=== PATIENT | female | born 1955 | race African-American/Black ===

== ENCOUNTER 2017-07-04 05:42 | Inpatient (IN) ==
[2017-07-04] MEDS ORDERED: CLINDAMYCIN INJ 50 ML IV ONE (05:57)
[2017-07-04] MEDS ORDERED: DIAZEPAM 5 MG TABLET PO ONE (06:00)
[2017-07-04] MEDS ORDERED: FAMOTIDINE 20 MG TABLET PO ONE (06:00)
[2017-07-04] MEDS ORDERED: TRANEXAMIC ACID 1,000 MG/10 ML VIAL ONE (06:27)
[2017-07-04] MEDS ORDERED: CLINDAMYCIN INJ 900 MG in PREMIX 1 EACH IV ONE (06:30)
[2017-07-04] MEDS: LACTATED RINGERS 1,000 ML IV SCH ×2 (06:39→19:36)
[2017-07-04] MEDS ORDERED: DIAZEPAM 5 MG TABLET ONE (06:47)
[2017-07-04] MEDS ORDERED: FAMOTIDINE 20 MG TABLET ONE (06:47)
[2017-07-04] MEDS ORDERED: VANCOMYCIN INJ 1,000 MG in SODIUM CHLORIDE 0.9% 250 ML IV ONE (06:48)
[2017-07-04] MEDS ORDERED: BUPIVACAINE SPINAL 0.75% 2 ML AMP SPINAL ONE (07:03)
[2017-07-04] MEDS ORDERED: MORPHINE 10 MG/10 ML VIAL ONE (07:03)
[2017-07-04] MEDS ORDERED: BISACODYL 10 MG SUPP RECTAL PRN (07:16)
[2017-07-04] MEDS ORDERED: MAGNESIUM HYDROXIDE SUSP 30 ML UDCUP PO PRN (07:16)
[2017-07-04] MEDS ORDERED: MORPHINE 4 MG/1 ML VIAL IV PRN (07:16)
[2017-07-04] MEDS ORDERED: ONDANSETRON 4 MG/2 ML VIAL IV PRN (07:16)
[2017-07-04] MEDS ORDERED: PROMETHAZINE 25 MG/1 ML VIAL IM PRN (07:16)
[2017-07-04] MEDS ORDERED: diphenhydrAMINE CAP 25 MG CAPSULE PO PRN (07:16)
[2017-07-04] MEDS ORDERED: NALOXONE 0.4 MG/ML VIAL IV PRN (07:16)
[2017-07-04] MEDS ORDERED: LACTULOSE 20 GM/30 ML UDCUP PO PRN (07:16)
[2017-07-04] MEDS ORDERED: TEMAZEPAM 7.5 MG CAPSULE PO PRN (07:16)
[2017-07-04] MEDS ORDERED: ROPIVACAINE 0.5% 30 ML VIAL ONE (08:50)
[2017-07-04] MEDS ORDERED: PROMETHAZINE 25 MG/1 ML VIAL ONE (08:53)
[2017-07-04] MEDS ORDERED: PROMETHAZINE 25 MG/1 ML VIAL IM ONE (09:00)
[2017-07-04] MEDS ORDERED: fentaNYL 100 MCG/2 ML VIAL ONE (09:11)
[2017-07-04] MEDS ORDERED: SEVOFLURANE 1 UNIT/15 MINUTE INH ONE (09:11)
[2017-07-04] MEDS ORDERED: PROPOFOL 200 MG/20 ML VIAL IV ONE (09:11)
[2017-07-04] MEDS ORDERED: ROCURONIUM 100 MG/10 ML VIAL IV ONE (09:12)
[2017-07-04] MEDS ORDERED: DEXAMETHASONE 10 MG/1 ML VIAL ONE (09:12)
[2017-07-04] MEDS ORDERED: MIDAZOLAM 2 MG/2 ML VIAL ONE (09:12)
[2017-07-04] MEDS ORDERED: GLYCOPYRROLATE 0.4 MG/2 ML VIAL ONE (09:12)
[2017-07-04] MEDS ORDERED: PHENYLEPHRINE 10 MG/1 ML VIAL IV ONE (09:12)
[2017-07-04] MEDS ORDERED: LACTATED RINGERS 1,000 ML IV ONE (09:12)
[2017-07-04] MEDS ORDERED: NEOSTIGMINE 10 MG/10 ML VIAL ONE (09:12)
[2017-07-04] MEDS ORDERED: KETAMINE 500 MG/10 ML VIAL ONE (09:12)
[2017-07-04] MEDS ORDERED: ACETAMINOPHEN 1,000 MG/100 ML VIAL IV ONE (09:12)
[2017-07-04] MEDS ORDERED: ONDANSETRON 4 MG/2 ML VIAL ONE (09:12)
[2017-07-04] MEDS ORDERED: MORPHINE 10 MG/1 ML VIAL ONE (09:26)
[2017-07-04] MEDS ORDERED: MORPHINE 10 MG/1 ML VIAL IV PRN (09:28)
[2017-07-04] MEDS ORDERED: MORPHINE PCA 30 MG/30 ML SYRINGE IV ONE (09:32)
[2017-07-04] MEDS: MORPHINE PCA 30 MG/30 ML SYRINGE IV SCH (09:36)
[2017-07-04] MEDS ORDERED: tiZANidine 4 MG TABLET PO SCH (10:00)
[2017-07-04] MEDS: VALSARTAN/HCTZ 160-12.5 MG TABLET PO SCH (11:45)
[2017-07-04] MEDS: ESTRADIOL 1 MG TABLET PO SCH (13:45)
[2017-07-04] MEDS: DOCUSATE SODIUM 100 MG CAPSULE PO SCH ×2 (13:45→20:45)
[2017-07-04] MEDS: MULTIVITAMIN (CENTRUM) TABLET PO SCH (13:45)
[2017-07-04] MEDS: ASPIRIN EC 81 MG TABLET PO SCH (13:45)
[2017-07-04] MEDS: OMEGA 3 ACID ETHYL ESTERS 1 GM CAPSULE PO SCH (13:46)
[2017-07-04] MEDS: NAPROXEN 500 MG TABLET PO SCH ×2 (13:46→20:45)
[2017-07-04] MEDS: CLINDAMYCIN INJ 900 MG in PREMIX 1 EACH IV SCH ×2 (15:22→22:07)
[2017-07-04] MEDS: tiZANidine 4 MG TABLET PO SCH (20:45)
[2017-07-05 04:42] LABS: Basophils % 0.3 % (0.0-0.8); Eosinophils % 0.1 % (0.00-10.9); Hematocrit 28.5 VOL% (35.7-47.0); Hemoglobin 9.1 GM/DL (12.0-16.0); Immature Granulocytes % 0.3 %; Immature Granulocytes Absolute 0.02 #; Lymphocytes # 1.1 10*3/uL (1.4-4.0); Lymphocytes % 15.7 % (21.3-54.2); Mean Corpuscular HGB Conc 31.9 GM/DL (32-36); Mean Corpuscular Hemoglobin 31 PG (27-34); Mean Corpuscular Volume 98.3 FL (87-102); Mean Platelet Volume 10.3 FL (9.6-12.0); Monocytes # 0.8 10*3/uL (0.11-0.8); Neutrophils # 4.9 10*3/uL (1.4-7.4); Neutrophils % 72.6 % (38.7-73.9); Platelet Count 201 T/CUMM (130-400); White Blood Count 6.8 T/CUMM (4-12)
[2017-07-05 05:11] LABS: Calcium 8.6 MG/DL (8.5-10.1); Osmolality,Calculated 279.4 MOS/KG (273-304); Potassium 3.6 MMOL/L (3.5-5.1)
[2017-07-05] MEDS: FONDAPARINUX 2.5 MG/0.5 ML SYRINGE SUBCUT SCH (06:12)
[2017-07-05] MEDS: ESTRADIOL 1 MG TABLET PO SCH ×2 (09:00→13:31)
[2017-07-05] MEDS: MULTIVITAMIN (CENTRUM) TABLET PO SCH (09:00)
[2017-07-05] MEDS: ASPIRIN EC 81 MG TABLET PO SCH (09:00)
[2017-07-05] MEDS: DOCUSATE SODIUM 100 MG CAPSULE PO SCH ×2 (09:00→20:48)
[2017-07-05] MEDS: NAPROXEN 500 MG TABLET PO SCH ×2 (09:00→20:48)
[2017-07-05] MEDS: OMEGA 3 ACID ETHYL ESTERS 1 GM CAPSULE PO SCH (09:00)
[2017-07-05] MEDS: VALSARTAN/HCTZ 160-12.5 MG TABLET PO SCH ×2 (09:00→13:31)
[2017-07-05] MEDS: MORPHINE PCA 30 MG/30 ML SYRINGE IV SCH (11:04)
[2017-07-05] MEDS: LACTATED RINGERS 1,000 ML IV SCH (20:48)
[2017-07-05] MEDS: tiZANidine 4 MG TABLET PO SCH (20:48)
[2017-07-06] MEDS: FONDAPARINUX 2.5 MG/0.5 ML SYRINGE SUBCUT SCH (05:10)
[2017-07-06 05:46] LABS: Basophils # 0.1 10*3/uL (0.0-0.2); Basophils % 0.6 % (0.0-0.8); Eosinophils # 0.3 10*3/uL (0.0-0.87); Hematocrit 28.4 VOL% (35.7-47.0); Hemoglobin 9.2 GM/DL (12.0-16.0); Immature Granulocytes % 0.4 %; Immature Granulocytes Absolute 0.03 #; Lymphocytes # 1.6 10*3/uL (1.4-4.0); Lymphocytes % 18.5 % (21.3-54.2); Mean Corpuscular HGB Conc 32.4 GM/DL (32-36); Mean Corpuscular Hemoglobin 32 PG (27-34); Mean Corpuscular Volume 98.3 FL (87-102); Monocytes # 0.7 10*3/uL (0.11-0.8); Monocytes % 8.2 % (1.7-12.7); Neutrophils # 5.9 10*3/uL (1.4-7.4); Neutrophils % 69.3 % (38.7-73.9); Platelet Count 182 T/CUMM (130-400); Red Blood Count 2.89 MC/CUMM (3.8-5.5); Red Cell Distribution Width 12.3 % (9.3-17.3); White Blood Count 8.5 T/CUMM (4-12)
[2017-07-06] MEDS: ASPIRIN EC 81 MG TABLET PO SCH (08:48)
[2017-07-06] MEDS: MULTIVITAMIN (CENTRUM) TABLET PO SCH (08:48)
[2017-07-06] MEDS: ESTRADIOL 1 MG TABLET PO SCH (08:49)
[2017-07-06] MEDS: DOCUSATE SODIUM 100 MG CAPSULE PO SCH ×2 (08:49→20:31)
[2017-07-06] MEDS: OMEGA 3 ACID ETHYL ESTERS 1 GM CAPSULE PO SCH (08:49)
[2017-07-06] MEDS: NAPROXEN 500 MG TABLET PO SCH ×2 (08:49→20:32)
[2017-07-06] MEDS: VALSARTAN/HCTZ 160-12.5 MG TABLET PO SCH (08:49)
[2017-07-06] MEDS: LACTATED RINGERS 1,000 ML IV SCH (08:50)
[2017-07-06] MEDS: tiZANidine 4 MG TABLET PO SCH (20:32)
[2017-07-07] MEDS: FONDAPARINUX 2.5 MG/0.5 ML SYRINGE SUBCUT SCH (06:02)
[2017-07-07 07:45] VITALS: BP 132/75
[2017-07-07] MEDS: ASPIRIN EC 81 MG TABLET PO SCH (08:12)
[2017-07-07] MEDS: DOCUSATE SODIUM 100 MG CAPSULE PO SCH (08:13)
[2017-07-07] MEDS: MULTIVITAMIN (CENTRUM) TABLET PO SCH (08:13)
[2017-07-07] MEDS: VALSARTAN/HCTZ 160-12.5 MG TABLET PO SCH (08:13)
[2017-07-07] MEDS: OMEGA 3 ACID ETHYL ESTERS 1 GM CAPSULE PO SCH (08:13)
[2017-07-07] MEDS: ESTRADIOL 1 MG TABLET PO SCH (08:13)
[2017-07-07] MEDS: NAPROXEN 500 MG TABLET PO SCH (08:14)
== END 2017-07-07 10:00 | disposition home health service (06) | DRG 470 ==
LOC: N.OR 05:42 → N.SDSINP 05:45 → N.3E 07:16
PROVIDERS: ADMIT Orthopaedic Surgery; ATTEND Orthopaedic Surgery

== ENCOUNTER 2020-02-03 06:12 | Inpatient (IN) ==
[2020-01-28 16:11] LABS: Basophils # 0.1 10*3/uL (0.0-0.2); Eosinophils # 0.2 10*3/uL (0.0-0.87); Hematocrit 36.3 VOL% (35.7-47.0); Hemoglobin 12.1 GM/DL (12.0-16.0); Immature Granulocytes % 0.3 %; Immature Granulocytes Absolute 0.01 #; Lymphocytes # 1.6 10*3/uL (1.4-4.0); Lymphocytes % 39.8 % (21.3-54.2); Mean Corpuscular HGB Conc 33.3 GM/DL (32-36); Mean Platelet Volume 10.4 FL (9.6-12.0); Neutrophils % 45.9 % (38.7-73.9); Platelet Count 241 T/CUMM (130-400); Red Blood Count 3.78 MC/CUMM (3.8-5.5); Red Cell Distribution Width 12.4 % (9.3-17.3)
[2020-01-28 16:34] LABS: Calcium 9.7 MG/DL (8.5-10.1); Osmolality,Calculated 278.4 MOS/KG (273-304)
[~2020-02-03 06:12] MED LIST: ALVIMOPAN 12 MG CAPSULE PO STA; CIPROFLOXACIN INJ 400 MG in PREMIX 1 EACH IV ONE; LACTATED RINGERS 1,000 ML IV SCH; metroNIDAZOLE INJ 500 MG in PREMIX 1 EACH IV ONE
[2020-02-03] MEDS ORDERED: LEVOFLOXACIN 500 MG TABLET PO STA (07:20)
[2020-02-03] MEDS ORDERED: GENTAMICIN INJ 160 MG in SODIUM CHLORIDE 0.9% 100 ML IV STA (07:21)
[2020-02-03] MEDS ORDERED: DIAZEPAM 5 MG TABLET PO STA (07:58)
[2020-02-03] MEDS ORDERED: FAMOTIDINE 20 MG TABLET PO STA (07:58)
[2020-02-03] MEDS ORDERED: fentaNYL 100 MCG/2 ML VIAL ONE (09:32)
[2020-02-03] MEDS ORDERED: MIDAZOLAM 2 MG/2 ML VIAL ONE (09:32)
[2020-02-03] MEDS ORDERED: LIDOCAINE 2% 5 ML VIAL ONE (09:35)
[2020-02-03] MEDS ORDERED: ROCURONIUM 50 MG/5 ML VIAL IV ONE ×2 (09:35→12:46)
[2020-02-03] MEDS ORDERED: propofoL 200 MG/20 ML VIAL IV ONE ×2 (09:35→14:33)
[2020-02-03] MEDS ORDERED: SUCCINYLCHOLINE 200 MG/10 ML VIAL ONE (09:35)
[2020-02-03] MEDS ORDERED: TISSUE ADHESIVE 1 EACH APPLICATOR TOP ONE (09:43)
[2020-02-03] MEDS ORDERED: ROPIVACAINE 0.5% 30 ML VIAL ONE (09:44)
[2020-02-03] MEDS ORDERED: LIDOCAINE 1%/EPI INJ 20 ML VIAL ONE (09:46)
[2020-02-03] MEDS ORDERED: BUPIVACAINE MPF 0.25% 30 ML VIAL ONE ×2 (09:46→09:51)
[2020-02-03] MEDS ORDERED: LIDOCAINE 1% 5 ML VIAL ONE (09:47)
[2020-02-03] MEDS ORDERED: DEXAMETHASONE 4 MG/1 ML VIAL ONE (09:48)
[2020-02-03] MEDS ORDERED: INDOCYANINE GREEN 25 MG VIAL IV ONE (10:45)
[2020-02-03] MEDS ORDERED: ePHEDrine 50 MG/ML VIAL ONE (11:05)
[2020-02-03] MEDS ORDERED: SEVOFLURANE 1 UNIT/15 MINUTE INH ONE ×14 (11:05→15:18)
[2020-02-03] MEDS ORDERED: LACTATED RINGERS 1,000 ML IV ONE ×2 (11:57→14:36)
[2020-02-03] MEDS ORDERED: HYDROmorphone 2 MG/1 ML VIAL ONE (12:25)
[2020-02-03] MEDS ORDERED: PHENYLEPHRINE 1 MG/10 ML SYRINGE IV ONE ×2 (12:34→14:15)
[2020-02-03] MEDS ORDERED: PHENYLEPHRINE 10 MG/1 ML VIAL IV ONE (13:13)
[2020-02-03] MEDS ORDERED: METHYLENE BLUE 10 ML VIAL IV ONE (13:31)
[2020-02-03] MEDS ORDERED: NEOSTIGMINE 10 MG/10 ML VIAL ONE ×4 (14:35→15:17)
[2020-02-03] MEDS ORDERED: GLYCOPYRROLATE 0.4 MG/2 ML VIAL ONE (14:35)
[2020-02-03] MEDS ORDERED: ONDANSETRON 4 MG/2 ML VIAL ONE (14:45)
[2020-02-03] MEDS ORDERED: ONDANSETRON 4 MG/2 ML VIAL IV PRN (15:20)
[2020-02-03] MEDS ORDERED: ONDANSETRON 4 MG/2 ML VIAL IV ONE (16:01)
[2020-02-03] MEDS ORDERED: PROMETHAZINE 25 MG/1 ML VIAL ONE (16:24)
[2020-02-03] MEDS ORDERED: PROMETHAZINE INJ 6.25 MG in SODIUM CHLORIDE 0.9% 50 ML IV ONE (16:30)
[2020-02-03] MEDS: DEXTROSE 5% LACTATED RINGERS 1,000 ML IV SCH ×2 (17:17→23:30)
[2020-02-03 18:06] LABS: Hematocrit 39.9 VOL% (35.7-47.0); Hemoglobin 12.7 GM/DL (12.0-16.0)
[2020-02-03] MEDS: HYDROmorphone 2 MG/1 ML VIAL IV PRN (18:34)
[2020-02-03] MEDS: OXYBUTYNIN XL 10 MG TABLET PO SCH (21:19)
[2020-02-03] MEDS: metroNIDAZOLE INJ 500 MG in PREMIX 1 EACH IV SCH (21:19)
[2020-02-04 00:08] LABS: Hematocrit 37.1 VOL% (35.7-47.0); Hemoglobin 11.9 GM/DL (12.0-16.0)
[2020-02-04] MEDS: DEXTROSE 5% LACTATED RINGERS 1,000 ML IV SCH ×3 (03:35→16:12)
[2020-02-04] MEDS: metroNIDAZOLE INJ 500 MG in PREMIX 1 EACH IV SCH (05:22)
[2020-02-04 06:09] LABS: Basophils # 0.1 10*3/uL (0.0-0.2); Basophils % 0.5 % (0.0-0.8); Hematocrit 33.8 VOL% (35.7-47.0); Hemoglobin 11.3 GM/DL (12.0-16.0); Immature Granulocytes % 0.3 %; Immature Granulocytes Absolute 0.03 #; Lymphocytes # 0.6 10*3/uL (1.4-4.0); Lymphocytes % 5.3 % (21.3-54.2); Mean Corpuscular HGB Conc 33.4 GM/DL (32-36); Mean Platelet Volume 11.1 FL (9.6-12.0); Monocytes % 7.5 % (1.7-12.7); Neutrophils % 86.4 % (38.7-73.9); Platelet Count 213 T/CUMM (130-400); Red Blood Count 3.45 MC/CUMM (3.8-5.5); Red Cell Distribution Width 12.6 % (9.3-17.3); White Blood Count 10.9 T/CUMM (4-12)
[2020-02-04 06:44] LABS: Calcium 8.4 MG/DL (8.5-10.1); Osmolality,Calculated 282.4 MOS/KG (273-304)
[2020-02-04] MEDS: HYDROmorphone 2 MG/1 ML VIAL IV PRN (07:23)
[2020-02-04] MEDS: ASPIRIN EC 81 MG TABLET PO SCH (08:59)
[2020-02-04] MEDS: LOSARTAN 50 MG TABLET PO SCH (08:59)
[2020-02-04] MEDS: PANTOPRAZOLE 40 MG TABLET PO SCH (08:59)
[2020-02-04] MEDS: ENOXAPARIN 40 MG/0.4 ML SYRINGE SUBCUT SCH (08:59)
[2020-02-04] MEDS: hydroCHLOROthiazide 12.5 MG CAPSULE PO SCH (08:59)
[2020-02-04] MEDS ORDERED: LEVOFLOXACIN INJ 500 MG in PREMIX 1 EACH IV SCH (09:21)
[2020-02-04] MEDS ORDERED: SIMETHICONE CHEW 80 MG TABLET PO PRN (15:52)
[2020-02-04] MEDS: OXYBUTYNIN XL 10 MG TABLET PO SCH (20:29)
[2020-02-05] MEDS: HYDROmorphone 2 MG/1 ML VIAL IV PRN ×2 (05:11→21:26)
[2020-02-05] MEDS: DEXTROSE 5% LACTATED RINGERS 1,000 ML IV SCH ×2 (06:29→21:30)
[2020-02-05] MEDS: LOSARTAN 50 MG TABLET PO SCH (09:31)
[2020-02-05] MEDS: PANTOPRAZOLE 40 MG TABLET PO SCH (09:31)
[2020-02-05] MEDS: ENOXAPARIN 40 MG/0.4 ML SYRINGE SUBCUT SCH (09:31)
[2020-02-05] MEDS: ASPIRIN EC 81 MG TABLET PO SCH (09:31)
[2020-02-05] MEDS: hydroCHLOROthiazide 12.5 MG CAPSULE PO SCH (09:31)
[2020-02-05] MEDS: SIMETHICONE CHEW 80 MG TABLET PO PRN ×2 (09:37→15:34)
[2020-02-05 11:14] LABS: Basophils % 0.4 % (0.0-0.8); Eosinophils # 0.4 10*3/uL (0.0-0.87); Eosinophils % 3.9 % (0.00-10.9); Hematocrit 30.5 VOL% (35.7-47.0); Hemoglobin 9.8 GM/DL (12.0-16.0); Immature Granulocytes % 0.6 %; Immature Granulocytes Absolute 0.05 #; Lymphocytes % 11.1 % (21.3-54.2); Mean Corpuscular HGB Conc 32.1 GM/DL (32-36); Mean Corpuscular Volume 98.7 FL (87-102); Mean Platelet Volume 10.2 FL (9.6-12.0); Platelet Count 174 T/CUMM (130-400); Red Blood Count 3.09 MC/CUMM (3.8-5.5); Red Cell Distribution Width 12.7 % (9.3-17.3)
[2020-02-05 11:38] LABS: Calcium 8.8 MG/DL (8.5-10.1); Osmolality,Calculated 279.3 MOS/KG (273-304)
[2020-02-05] MEDS: OXYBUTYNIN XL 10 MG TABLET PO SCH (20:43)
[2020-02-06] MEDS: SIMETHICONE CHEW 80 MG TABLET PO PRN ×2 (08:38→18:01)
[2020-02-06] MEDS: ASPIRIN EC 81 MG TABLET PO SCH (08:39)
[2020-02-06] MEDS: ENOXAPARIN 40 MG/0.4 ML SYRINGE SUBCUT SCH (08:39)
[2020-02-06] MEDS: PANTOPRAZOLE 40 MG TABLET PO SCH (08:39)
[2020-02-06] MEDS: hydroCHLOROthiazide 12.5 MG CAPSULE PO SCH (08:39)
[2020-02-06] MEDS: LOSARTAN 50 MG TABLET PO SCH (08:39)
[2020-02-06] MEDS ORDERED: POTASSIUM CHLORIDE 20 MEQ TABLET PO ONE (09:34)
[2020-02-06] MEDS: HYDROmorphone 2 MG/1 ML VIAL IV PRN ×2 (12:31→21:20)
[2020-02-06] MEDS: OXYBUTYNIN XL 10 MG TABLET PO SCH (21:10)
[2020-02-07 06:43] LABS: Calcium 8.8 MG/DL (8.5-10.1); Osmolality,Calculated 269.8 MOS/KG (273-304)
[2020-02-07] MEDS: hydroCHLOROthiazide 12.5 MG CAPSULE PO SCH (08:56)
[2020-02-07] MEDS: ASPIRIN EC 81 MG TABLET PO SCH (08:56)
[2020-02-07] MEDS: PANTOPRAZOLE 40 MG TABLET PO SCH (08:56)
[2020-02-07] MEDS: SIMETHICONE CHEW 80 MG TABLET PO PRN (08:56)
[2020-02-07] MEDS: LOSARTAN 50 MG TABLET PO SCH (08:56)
[2020-02-07] MEDS: ENOXAPARIN 40 MG/0.4 ML SYRINGE SUBCUT SCH (08:56)
[2020-02-07] MEDS: OXYBUTYNIN XL 10 MG TABLET PO SCH (20:44)
[2020-02-07] MEDS: HYDROmorphone 2 MG/1 ML VIAL IV PRN (22:06)
[2020-02-08 08:25] VITALS: BP 124/68
[2020-02-08] MEDS: hydroCHLOROthiazide 12.5 MG CAPSULE PO SCH (08:54)
[2020-02-08] MEDS: ENOXAPARIN 40 MG/0.4 ML SYRINGE SUBCUT SCH (08:55)
[2020-02-08] MEDS: ASPIRIN EC 81 MG TABLET PO SCH (08:55)
[2020-02-08] MEDS: LOSARTAN 50 MG TABLET PO SCH (08:55)
[2020-02-08] MEDS: PANTOPRAZOLE 40 MG TABLET PO SCH (08:55)
== END 2020-02-08 10:52 | disposition home or self-care (01) | DRG 330 ==
LOC: N.SDSINP 06:12 → N.OR 06:12 → N.5E 06:12 → N.SDSINP 06:15 → N.OR 17:08 → N.5E 17:08 → N.SDSINP 02-04 08:17 → EDSDCBED 02-04 08:17 → N.5E 02-05 08:53
PROVIDERS: ADMIT Surgery; ATTEND Surgery